=== PATIENT | male | born 1995 | race African-American/Black ===

== ENCOUNTER 2017-04-29 08:57 | Emergency (ER) | payer MEDICAID, OTHER ==
[2017-04-29] MEDS ORDERED: IBUPROFEN 800 MG TABLET PO ONE (09:16)
[2017-04-29] MEDS ORDERED: DIPH/PERTUSS(ACELL)/TETANUS VAC/PF 0.5 ML SYR (>=10YO) IM ONE (09:16)
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
[2017-04-29 10:42] VITALS: BP 116/75
== END 2017-04-29 10:38 | disposition home or self-care (01) ==
LOC: ER 08:57
DX: S43.402A Unspecified sprain of left shoulder joint, initial encounter (principal); S50.811A Abrasion of right forearm, initial encounter; R03.0 Elevated blood-pressure reading, without diagnosis of hypertension; V28.4XXA Motorcycle driver injured in noncollision transport accident in traffic accident, initial encounter; Z23 Encounter for immunization
CPT/HCPCS: 99283; 90471; 73030; 90715; L3650; J3490

== ENCOUNTER 2019-04-05 11:35 | Emergency (ER) | payer SELFPAY ==
[2019-04-05] MEDS ORDERED: DIPH/PERTUSS(ACELL)/TETANUS VAC/PF 0.5 ML SYR (>=10YO) IM ONE (12:25)
[2019-04-05] MEDS ORDERED: IBUPROFEN 800 MG TABLET PO ONE (12:25)
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
[2019-04-05 13:28] VITALS: BP 134/83
== END 2019-04-05 13:28 | disposition home or self-care (01) ==
LOC: ER 11:35
DX: S05.12XA Contusion of eyeball and orbital tissues, left eye, initial encounter (principal); S01.412A Laceration without foreign body of left cheek and temporomandibular area, initial encounter; Y04.0XXA Assault by unarmed brawl or fight, initial encounter
CPT/HCPCS: 70486; 90471; 90715; 99283

== ENCOUNTER 2019-08-18 07:25 | Emergency (ER) | payer SELFPAY ==
--- NOTE | 2019-08-18 09:19 | ER Document Report ---
ED General - General Chief Complaint: Chest Pain Stated Complaint: CHEST PAIN Time Seen by Provider: 08/18/19 08:58 Primary Care Provider: [facility] [NO LOCAL MD] - Follow up in 1 week TRAVEL OUTSIDE OF THE [place] IN LAST 30 DAYS: No - HPI Notes: Patient presents with 2 months of left shoulder and upper chest wall pain replicated with movement. 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 No recent traumas falls illnesses. No nausea vomiting diarrhea no black or red stools.. He also states he has been feeling fatigued for several months. He is inspected to have a child soon. Medical problems does not take any medicines on Dobbs basis does not smoke. - Related Data Allergies/Adverse Reactions: No Known Allergies Allergy (Verified 08/18/19 07:43) Past Medical History - Social History Smoking Status: Former Smoker Chew tobacco use (# tins/day): No Frequency of alcohol use: Rare Drug Abuse: None Family History: Reviewed & Not Pertinent Patient has suicidal ideation: No Patient has homicidal ideation: No Renal/ Medical History: Denies: Hx Peritoneal Dialysis GI Medical History: Reports: Hx Gastroesophageal Reflux Disease Past Surgical History: Reports: Hx Oral Surgery - Immunizations Immunizations up to date: Yes Hx Diphtheria, Pertussis, Tetanus Vaccination: Yes Review of Systems - Review of Systems Constitutional: See HPI EENT: No symptoms reported Cardiovascular: No symptoms reported Respiratory: No symptoms reported Gastrointestinal: No symptoms reported Genitourinary: No symptoms reported Male Genitourinary: No symptoms reported Musculoskeletal: See HPI Skin: No symptoms reported Hematologic/Lymphatic: No symptoms reported Neurological/Psychological: No symptoms reported Physical Exam - Vital signs Vitals: Temp Pulse Resp BP Pulse Ox 98.0 F 62 18 137/92 H 97 08/18/19 07:29 08/18/19 07:29 08/18/19 07:29 08/18/19 07:29 08/18/19 07:29 - General General appearance: Appears well, Alert - HEENT Head: Normocephalic, Atraumatic Conjunctiva: Normal, Other - No pallor - Respiratory Respiratory status: No respiratory distress Chest status: Nontender Breath sounds: Normal Chest palpation: Other - Reproducible tenderness to the chest wall and absence of any cellulitis erythema induration or fluctuance. - Cardiovascular Rhythm: Regular Heart sounds: Normal auscultation Murmur: No - Abdominal Inspection: Normal Distension: No distension Bowel sounds: Normal Tenderness: Nontender - Extremities General upper extremity: Normal inspection, Normal ROM, Other - Pain reproduced with movement of shoulder mild in nature no crepitus. Course - Re-evaluation Re-evalutation: 08/18/19 09:18 Patient has had 2 months of intermittent shoulder tenderness and chest wall tenderness is reproduced with palpation and movement. He stocks items for living. No recent fevers illnesses cough or congestion. His symptoms appear musculoskeletal in nature he does not take any medications to help with the symptoms. He also states he has been just feeling tired over the last several months absence of any recent fevers chills or weight loss. Will provide 5 days of naproxen. This is to see if this helps with his pain. In regards to his fatigue, I referred him to community care in clinic where he can have further evaluation of symptoms are continuing. I did advise patient to get more sleep to see if this helps with his symptoms of overall fatigue. - Vital Signs Vital signs: Temp Pulse Resp BP Pulse Ox 98.0 F 62 18 137/92 H 97 08/18/19 07:29 08/18/19 07:29 08/18/19 07:29 08/18/19 07:29 08/18/19 07:29 - EKG Interpretation by Me Additional EKG results interpreted by me: 08/18/19 09:22 Times 7:34 AM Rate of 63, normal sinus rhythm, normal axis, normal intervals, normal EKG Discharge - Discharge Clinical Impression: Musculoskeletal pain of right upper extremity Disposition: HOME, SELF-CARE Additional Instructions: Please take medications as prescribed. If your symptoms are not improving please seek medical evaluation 1 week. Community care in clinic referral has been provided. Prescriptions: Naproxen 500 mg PO BID #10 tablet [facility]: [facility] [NO LOCAL MD] - Follow up in 1 week
[2019-08-18 09:28] VITALS: BP 126/72
--- NOTE | 2019-08-18 12:52 | EKG REPORT ---
SEVERITY:- NORMAL ECG - SINUS RHYTHM : Confirmed by: Shoaib Campos MD 18-Aug-2019 12:51:16
== END 2019-08-18 09:28 | disposition home or self-care (01) ==
LOC: ER 07:25
DX: M79.601 Pain in right arm (principal); R07.89 Other chest pain; M25.512 Pain in left shoulder; R53.83 Other fatigue; Z87.891 Personal history of nicotine dependence
CPT/HCPCS: 93005; 93010; 99284

== ENCOUNTER 2019-09-12 22:04 | Emergency (ER) | payer SELFPAY ==
[2019-09-12] MEDS ORDERED: NORMAL SALINE 1000 ML 1,000 ML IV ONE (23:10)
--- NOTE | 2019-09-12 23:10 | EKG REPORT ---
SEVERITY:- NORMAL ECG - SINUS RHYTHM : Confirmed by: Shoaib Campos MD 12-Sep-2019 23:08:28
--- NOTE | 2019-09-12 23:30 | ER Document Report ---
ED General - General Chief Complaint: BODY ACHINESS Stated Complaint: BODY ACHES Time Seen by Provider: 09/12/19 23:03 Notes: Patient is a 23-year-old male that comes emergency department for chief complaint of pain in the center of his chest. He states this is intermittent and sharp. He states this does seem to get better with rest especially if he has been exerting with work. He states he is also feeling generally tired and drained. He states he feels like he has no energy. He denies fever/chills, night sweats, weight loss, nausea or vomiting, cough, or recent illness. TRAVEL OUTSIDE OF THE [place] IN LAST 30 DAYS: No - Related Data Allergies/Adverse Reactions: No Known Allergies Allergy (Verified 08/18/19 07:43) Past Medical History - General Information source: Patient - Social History Smoking Status: Never Smoker Frequency of alcohol use: Occasional Drug Abuse: None Lives with: Family Family History: Reviewed & Not Pertinent Patient has suicidal ideation: No Patient has homicidal ideation: No Renal/ Medical History: Denies: Hx Peritoneal Dialysis GI Medical History: Reports: Hx Gastroesophageal Reflux Disease Past Surgical History: Reports: Hx Oral Surgery - Immunizations Immunizations up to date: Yes Hx Diphtheria, Pertussis, Tetanus Vaccination: Yes Review of Systems - Review of Systems Constitutional: See HPI EENT: No symptoms reported Cardiovascular: See HPI Respiratory: No symptoms reported Gastrointestinal: No symptoms reported Genitourinary: No symptoms reported Male Genitourinary: No symptoms reported Musculoskeletal: No symptoms reported Skin: No symptoms reported Hematologic/Lymphatic: No symptoms reported Neurological/Psychological: See HPI Physical Exam - Vital signs Vitals: Temp Pulse Resp BP Pulse Ox 98.0 F 57 L 16 143/67 H 100 09/12/19 22:19 09/12/19 22:19 09/12/19 22:19 09/12/19 22:19 09/12/19 22:19 - Notes Notes: GENERAL: Alert, interacts well. No acute distress. HEAD: Normocephalic, atraumatic. EYES: Pupils equal, round, and reactive to light. Extraocular movements intact. ENT: Oral mucosa moist, tongue midline. Oropharynx unremarkable. Airway patent. NECK: Full range of motion. Supple. Trachea midline. LUNGS: Clear to auscultation bilaterally, no wheezes, rales, or rhonchi. No respiratory distress. HEART: Regular rate and rhythm. No murmur ABDOMEN: Soft, non-tender. Non-distended. Bowel sounds present in all 4 quadrants. GENITOURINARY: Deferred EXTREMITIES: Moves all 4 extremities spontaneously. No edema, normal radial and dorsalis pedis pulses bilaterally. No cyanosis. BACK: no cervical, thoracic, lumbar midline tenderness. No saddle anesthesia, normal distal neurovascular exam. Moves all extremities in full range of motion. NEUROLOGICAL: Alert and oriented x3. Normal speech. Cranial nerves II through XII grossly intact. PSYCH: Patient asks a lot of questions, appears concerned and mildly anxious, otherwise unremarkable SKIN: Warm, dry, normal turgor. No rashes or lesions noted. Course - Re-evaluation Re-evalutation: EKG, chest x-ray, and general labs unremarkable. Vital signs repeated and unremarkable. Patient with nonspecific symptoms, when I discussed his work-up he became very relieved. He denies recreational drugs, he has no concerning reported symptoms, he states he has been extremely stressed and sleeping poorly and he thinks this is why he feels bad. He does state appreciation for work-up, I discussed follow-up and return precautions, patient was provided with Flexeril for possible muscle component as well because he works a lot and has intermittent sharp pains in his chest. Patient states understanding and agreement with plan. - Vital Signs Vital signs: Temp Pulse Resp BP Pulse Ox 98.5 F 72 16 128/65 H 100 09/13/19 00:59 09/13/19 00:59 09/13/19 00:59 09/13/19 00:59 09/13/19 00:59 - Laboratory Result Diagrams: 09/12/19 23:59 09/12/19 23:59 Laboratory results interpreted by me: 09/12/19 23:17 Urine Urobilinogen 2.0 H - EKG Interpretation by Me Additional EKG results interpreted by me: EKG shows sinus rhythm at a rate of 60, QTC of 380, normal axis, no T wave inversions or ST segment changes in consecutive leads. Discharge - Discharge Clinical Impression: Generalized weakness, Lack of adequate sleep Chest pain Qualifiers: Chest pain type: unspecified Qualified Code(s): R07.9 - Chest pain, unspecified Condition: Stable Disposition: HOME, SELF-CARE Additional Instructions: Your chest x-ray, EKG, and laboratory work-up show mild dehydration which we have addressed to but otherwise shows no concerning finding. Recommendation is improved rest, better hydration, and if needed take the provided muscle relaxer. This can make you sleepy, recommend only taking this at night if possible. Follow-up with primary care. Return for any concerning symptoms including passing out, difficulty breathing, fever, severe pain, or any other concerning or worsening symptoms. Prescriptions: Cyclobenzaprine HCl [Flexeril 5 mg Tablet] 1 - 2 tab PO TID PRN #15 tablet PRN Reason:
[2019-09-12 23:41] LABS: APPEARANCE,URINE CLEAR; BILIRUBIN,URINE NEGATIVE (NEGATIVE); COLOR,URINE YELLOW; GLUCOSE, URINE NEGATIVE (NEGATIVE); KETONES,URINE NEGATIVE (NEGATIVE); LEUKOCYTE ESTERASE,URINE NEGATIVE (NEGATIVE); NITRITE,URINE NEGATIVE (NEGATIVE); PROTEIN,URINE NEGATIVE (NEGATIVE); URINE SPECIFIC GRAVITY 1.024
--- NOTE | 2019-09-13 00:19 | RADIOLOGY REPORT (SQ) ---
EXAM DESCRIPTION: XR CHEST 2 VIEWS COMPLETED DATE/TME: 09/12/2019 23:10 CLINICAL HISTORY: 23 years, Male, chest pain COMPARISON: None. NUMBER OF VIEWS: TECHNIQUE: LIMITATIONS: None. FINDINGS: No evidence of pulmonary infiltrate or pleural effusion. The heart and mediastinum are unremarkable. Pulmonary vascularity appears normal. IMPRESSION: Normal chest x-ray. copyright 2010 [employer]- All Rights Reserved
[2019-09-13 00:23] LABS: ABSOLUTE BASOPHILS # (AUTO) 0.1 10^3/uL (0.0-0.2); ABSOLUTE EOSINOPHILS # (AUTO) 0.1 10^3/uL (0.0-0.6); ABSOLUTE LYMPHOCYTES (AUTO) 1.7 10^3/uL (0.5-4.7); ABSOLUTE MONOCYTES (AUTO) 0.7 10^3/uL (0.1-1.4); EOSINOPHILS % (AUTO) 1.3 % (0-6); HEMATOCRIT 43.5 % (37.9-51.0); HEMOGLOBIN 15.2 g/dL (13.5-17.0); LYMPHOCYTES % (AUTO) 22.3 % (13-45); MEAN CORPUSCULAR VOLUME 86 fl (80-97); PLATELET COUNT 222 10^3/uL (150-450); RED BLOOD COUNT 5.08 10^6/uL (4.35-5.55); SEGMENTED NEUTROPHILS % (AUTO) 66.4 % (42-78); TOTAL CELLS COUNTED % (AUTO) 100 %; WHITE BLOOD COUNT 7.6 10^3/uL (4.0-10.5)
[2019-09-13 00:28] LABS: ANION GAP 6 (5-19); BLOOD UREA NITROGEN 15 mg/dL (7-20); CALCIUM 9.2 mg/dL (8.4-10.2); CARBON DIOXIDE 28 mmol/L (22-30); CHLORIDE 106 mmol/L (98-107); CREATINE KINASE 160 U/L (55-170); GLUCOSE 90 mg/dL (75-110); POTASSIUM 4.1 mmol/L (3.6-5.0)
[2019-09-13 01:00] VITALS: BP 128/65
== END 2019-09-13 01:15 | disposition home or self-care (01) ==
LOC: ER 22:04
DX: R07.9 Chest pain, unspecified (principal); R53.1 Weakness
CPT/HCPCS: 93005; 99284; 96360; 36415; 82550; 85025; 80048; 81001; 71046; 93010; J7030

== ENCOUNTER 2019-12-12 17:49 | Emergency (ER) | payer SELFPAY ==
[2019-12-12 18:11] VITALS: BP 141/81
--- NOTE | 2019-12-12 18:26 | ER Document Report ---
ED Medical Screen (RME) - General Chief Complaint: STD Exposure Stated Complaint: LEFT LOWER ABDOMINAL PAIN/POSSIBLE STD EXPOSURE Time Seen by Provider: 12/12/19 18:24 Mode of Arrival: Ambulatory Information source: Patient Notes: Patient presents complaining of left pelvic pain for the past week. Patient states pain will occasionally radiate to the back area. Patient denies any scrotal tenderness. Patient denies any fever, nausea or vomiting. I have greeted and performed a rapid initial assessment of this patient. A comprehensive ED assessment and evaluation of the patient, analysis of test results and completion of the medical decision making process will be conducted by additional ED providers. TRAVEL OUTSIDE OF THE [place] IN LAST 30 DAYS: No - Related Data Allergies/Adverse Reactions: No Known Allergies Allergy (Verified 12/12/19 18:15) Past Medical History - Social History Chew tobacco use (# tins/day): No Frequency of alcohol use: Occasional Drug Abuse: None Renal/ Medical History: Denies: Hx Peritoneal Dialysis GI Medical History: Reports: Hx Gastroesophageal Reflux Disease Past Surgical History: Reports: Hx Oral Surgery - Immunizations Immunizations up to date: Yes Hx Diphtheria, Pertussis, Tetanus Vaccination: Yes Physical Exam - Vital signs Vitals: Temp Pulse Resp BP Pulse Ox 99.1 F 82 16 141/81 H 96 12/12/19 18:10 12/12/19 18:10 12/12/19 18:10 12/12/19 18:10 12/12/19 18:10 - General General appearance: Appears well, Alert Notes: Left lower groin/pelvic tenderness Course - Vital Signs Vital signs: Temp Pulse Resp BP Pulse Ox 99.1 F 82 16 141/81 H 96 12/12/19 18:10 12/12/19 18:10 12/12/19 18:10 12/12/19 18:10 12/12/19 18:10
[2019-12-12 19:10] LABS: APPEARANCE,URINE CLEAR; BILIRUBIN,URINE NEGATIVE (NEGATIVE); COLOR,URINE YELLOW; GLUCOSE, URINE NEGATIVE (NEGATIVE); KETONES,URINE NEGATIVE (NEGATIVE); LEUKOCYTE ESTERASE,URINE NEGATIVE (NEGATIVE); NITRITE,URINE NEGATIVE (NEGATIVE); PROTEIN,URINE 30 mg/dL (NEGATIVE); URINE SPECIFIC GRAVITY 1.028
[2019-12-13 13:55] LABS: CHLAM PCR NOT DETECTED (NOT DETECT)
== END 2019-12-12 20:35 | disposition left against medical advice (07) ==
LOC: ER 17:49
DX: Z53.21 Procedure and treatment not carried out due to patient leaving prior to being seen by health care provider (principal); Z20.2 Contact with and (suspected) exposure to infections with a predominantly sexual mode of transmission; M54.9 Dorsalgia, unspecified; R10.2 Pelvic and perineal pain
CPT/HCPCS: 81001; 87491; 87591; 99281